=== PATIENT | female | born 1955 | race Caucasian/White ===

== ENCOUNTER 2023-06-26 08:29 | Outpatient (CLI) | payer MEDICARE, OTHER, SELFPAY ==
--- NOTE | 2023-06-26 10:10 | W.ANESCHARGE ---
Anesthesia Charges Start Date/Time Anesthesia Start Date: 06/26/23 Anesthesia Start Time: 09:28 Stop Date/Time Anesthesia Stop Date: 06/26/23 Anesthesia Stop Time: 10:08
--- NOTE | 2023-06-26 12:09 | W.ANESCHARGE ---
Anesthesia Charges Start Date/Time Anesthesia Start Date: 06/26/23 Anesthesia Start Time: 09:28 Stop Date/Time Anesthesia Stop Date: 06/26/23 Anesthesia Stop Time: 10:08
== END 2023-06-26 08:30 | disposition home or self-care (01) ==
LOC: OP CLINIC 08:33
PROVIDERS: PCP Student in an Organized Health Care Education/Training Program; Visit Provider Internal Medicine Gastroenterology
DX: Z12.11 Encounter for screening for malignant neoplasm of colon (principal); Q43.8 Other specified congenital malformations of intestine
CPT/HCPCS: 00811; 00812; 45378; J2704